=== PATIENT | female | born 1955 | race Caucasian/White ===

== ENCOUNTER 2024-02-25 09:02 | Outpatient (CLI) | payer MEDICARE, SELFPAY ==
--- NOTE | ~2024-02-25 | US_ITS ---
EXAMINATION: US pelvic complete w TV DATE: 02/25/2024 09:49 INDICATION: Pelvic and perineal pain and cramping TECHNIQUE: Multiple transabdominal and endovaginal sonographic images of the pelvis were obtained. COMPARISON: None. FINDINGS: The uterus measures 4.9 x 3.2 x 4.0 cm. 4 mm anechoic nabothian cyst at the cervix. The endometrial c omplex measures 8 mm in thickness. This appears nonuniform with the thickening isolated to the left s iam of the uterine fundus. There is an endometrial thickening has heterogeneous appearance predominan tly hyperechoic with suggestion of central small cystic spaces but is without hyperemia on color Dopp ler. The right ovary measures 1.4 x 0.7 x 1.3 cm. The left ovary measures 1.8 x 1.2 x 1.4 cm. Vascula r flow with arterial and venous waveforms identified in both ovaries on color Doppler. There is no fr ee fluid in the pelvis. IMPRESSION: 1. Nonuniform thickening of the endometrial complex at the left side of the fundus where it measures up to 8 mm in thickness. Differential would include endometrial polyp, endometrial hyperplasia or end ometrial carcinoma and would recommend hysteroscopy for further evaluation. Reviewed, dictated and finalized at location B. IMPRESSION: 1. Nonuniform thickening of the endometrial complex at the left side of the fun dus where it measures up to 8 mm in thickness. Differential would include endom etrial polyp, endometrial hyperplasia or endometrial carcinoma and would recomm end hysteroscopy for further evaluation.
== END 2024-02-25 09:03 | disposition home or self-care (01) ==
LOC: ANHIMG 09:05
PROVIDERS: Visit Provider Obstetrics & Gynecology
DX: N85.00 Endometrial hyperplasia, unspecified (principal)
CPT/HCPCS: 76830; 76856

== ENCOUNTER 2024-06-11 11:27 | Outpatient (CLI) | payer MEDICARE, SELFPAY ==
[2024-06-11 12:14] LABS: Anion Gap 5 mmol/L (4-12); Blood Urea Nitrogen 17 mg/dL (7-17); Calcium 9.5 mg/dL (8.4-10.2); Carbon Dioxide 34 mmol/L (22-30); Chloride 100 mmol/L (98-107); Estimated Glomerular Filt Rate 49; Glucose 136 mg/dL (65-110); Potassium 3.4 mmol/L (3.4-5.0); Sodium 139 mmol/L (137-145)
== END 2024-06-11 11:28 | disposition home or self-care (01) ==
LOC: ANHSURGERY 11:35
PROVIDERS: Anesthesiology; Visit Provider Obstetrics & Gynecology
DX: Z51.81 Encounter for therapeutic drug level monitoring (principal)
CPT/HCPCS: 36415; 80048

== ENCOUNTER 2024-06-17 02:41 | Day surgery (SDC) | payer MEDICARE, SELFPAY ==
[2024-06-09 11:30] VITALS: BMI 28.4
--- NOTE | 2024-06-09 12:01 | PC.NURSE ---
Report to the Outpatient Waiting Room, entrance under the green pavilion located off [facility], at time __9:00AM on date ___06/17/24____. Planned Procedure Time: ___11:00AM .? Time changes happen often and if your time is changed the preop area will call you the afternoon before. - You and your visitor will be asked to self-screen and do not enter if you have any COVID symptoms. Please call surgeon if you need to reschedule. - A mask is optional within the hospital at this time. Patients may have clear liquids (water, carbonated beverages, clear teas, apple juice) until 3 hours prior to surgery with a maximum of 20 ounces. - No food from midnight until time of surgery and no smoking. Take only the following medications with a SIP of water on the morning of surgery: ___DULOXETINE, METOPROLOL, MORPHINE DO NOT STOP ANY OF YOUR OTHER PRESCRIPTION MEDICATIONS PRIOR TO SURGERY EXCEPT THE FOLLOWING Medications to discontinue per physician NONE Date to take last dose Please no make-up, nail slovak, hairspray, perfume, deodorant, or body powder the day of surgery.? No jewelry (including any body piercings) or valuables the day of surgery, leave them at home.? Please take a shower or bath the night before, or the morning of, surgery with an antibacterial soap.? Wear comfortable, loose fitting clothing.? - Jewelry must be removed prior to entering the operating room.? Rings and piercings that are not removed may be cut off. - The hospital will not accept responsibility for valuables.? - Please leave all valuables, including medications, at home the day of surgery. If you are going home after surgery, a licensed delivery truck driver must drive you home.? - NO public transportation without another adult if you receive anesthesia. - We recommend that an adult stay with you for 24 hours following discharge. - We also recommend that you do not drive, make important decision, drink alcoholic beverages, or take any drugs that were not prescribed by your health care provider for at least 24 hours after your discharge time. Follow any additional instructions given to you from your surgeon. Telephone instructions given to ____PATIENT and asked if any additional questions and then verbalized understanding. Patient advised to call surgeon office or pre surgery nurse liaison [phone] if any additional questions.
[2024-06-17 09:25] VITALS: BP 121/66; PULSE 66; RESP 18; TEMP 36.2; O2SAT 96
[2024-06-17] MEDS: ACETAMINOPHEN 500 MG TABLET 1000 MG PO (09:41)
--- NOTE | 2024-06-17 09:44 | WPDANESEPPF ---
Anes - Initial Pre Proc Eval Procedure: Operation Date: 06/17/24 11:00 Proposed Procedures p Hysteroscopy Dilation and Curettage - Pascual Ulloa MD Date/Time: 06/17/24 09:44 Surgeon: Pascual Ulloa MD Pre Op Diagnosis: Endometrium Thickened Patient Data Age: 69 Gender: F Height: 1.68 m Weight: 80.2 kg Last Vital Signs Temp 36.2 C L 06/17/24 09:25 Pulse 66 06/17/24 09:25 Resp 18 06/17/24 09:25 BP 121/66 06/17/24 09:25 Pulse Ox 96 06/17/24 09:25 O2 Del Method Room Air 06/17/24 09:25 Allergies Allergy/AdvReac Type Severity Reaction Status Date / Time citalopram AdvReac Itching Verified 06/17/24 09:21 Home Medications Medication Instructions Recorded Confirmed Type aspirin 81 mg tablet,delayed 81 mg PO HS 06/09/24 06/17/24 History release clonazepam 1 mg tablet 1 mg PO HS 06/09/24 06/17/24 History duloxetine 30 mg capsule,delayed 30 mg PO QAM 06/09/24 06/17/24 History release ezetimibe 10 mg tablet 10 mg PO DAILY 06/09/24 06/17/24 History losartan 100 1 tablet PO QAM 06/09/24 06/17/24 History mg-hydrochlorothiazide 25 mg tablet metoprolol succinate 50 mg 50 mg PO QAM 06/09/24 06/17/24 History tablet,extended release 24 hr morphine 15 mg tablet,extended 15 mg PO BID 06/09/24 06/17/24 History release omeprazole 20 mg tablet,delayed 20 mg PO DAILY 06/09/24 06/17/24 History release rosuvastatin 20 mg tablet 20 mg PO HS 06/09/24 06/17/24 History Results Review: All pre-operative results and documents have been reviewed as part of the pre-operative evaluation. [facility]LY [facility] Social History Social History Smoking packs per day: 1 Smoking cigarettes per day: 20.0 Years smoked: 50 Smoking pack-years: 50.00 Smoking status: Former smoker Tobacco type: cigarettes Smoking end date: 06/12/23 Living arrangements: other Additional living arrangements comments: S.O. Spiritual care concerns: No Anes - Eval Final PreProcedure Day of Procedure 06/17/24 09:44 Patient weight: overweight ASA classification: III Emergent: no Anesthetic plan: proceed Anesthesia type and monitoring: general GIVS and standard monitoring Results Review: All pre-operative results and documents have been reviewed as part of the pre-operative evaluation. Informed Consent: The patient's anesthetic plan and its attendant risks and benefits were discussed with the patient/family/POA. Questions were solicited and answers provided to the satisfaction of the patient/family/POA.
--- NOTE | 2024-06-17 10:03 | P.PNAN_ITS ---
Anes - Initial Pre Proc Eval Procedure: Operation Date: 06/17/24 11:00 Proposed Procedures p Hysteroscopy Dilation and Curettage - Pascual Ulloa MD Date/Time: 06/17/24 10:03 Surgeon: Pascual Ulloa MD Pre Op Diagnosis: Endometrium Thickened Patient Data Age: 69 Gender: F Height: 1.68 m Weight: 80.2 kg Last Vital Signs Temp 97.2 F L 06/17/24 09:25 Pulse 66 06/17/24 09:25 Resp 18 06/17/24 09:25 BP 121/66 06/17/24 09:25 Pulse Ox 96 06/17/24 09:25 O2 Del Method Room Air 06/17/24 09:25 Allergies Allergy/AdvReac Type Severity Reaction Status Date / Time citalopram AdvReac Itching Verified 06/17/24 09:21 Home Medications Medication Instructions Recorded Confirmed Type aspirin 81 mg tablet,delayed 81 mg PO HS 06/09/24 06/17/24 History release clonazepam 1 mg tablet 1 mg PO HS 06/09/24 06/17/24 History duloxetine 30 mg capsule,delayed 30 mg PO QAM 06/09/24 06/17/24 History release ezetimibe 10 mg tablet 10 mg PO DAILY 06/09/24 06/17/24 History losartan 100 1 tablet PO QAM 06/09/24 06/17/24 History mg-hydrochlorothiazide 25 mg tablet metoprolol succinate 50 mg 50 mg PO QAM 06/09/24 06/17/24 History tablet,extended release 24 hr morphine 15 mg tablet,extended 15 mg PO BID 06/09/24 06/17/24 History release omeprazole 20 mg tablet,delayed 20 mg PO DAILY 06/09/24 06/17/24 History release rosuvastatin 20 mg tablet 20 mg PO HS 06/09/24 06/17/24 History Patient hx anesthesia problems: none Family hx anesthesia problems: none Results Review: All pre-operative results and documents have been reviewed as part of the pre- operative evaluation. COUNTS INCLUDE 234 BEDS AT THE [facility] Social History Social History Smoking packs per day: 1 Smoking cigarettes per day: 20.0 Years smoked: 50 Smoking pack-years: 50.00 Smoking status: Former smoker Tobacco type: cigarettes Smoking end date: 06/12/23 Living arrangements: other Additional living arrangements comments: S.O. Spiritual care concerns: No Anes - Eval Final PreProcedure Day of Procedure 06/17/24 10:03 Patient weight: normal Heart: regular rate and rhythm Lungs: clear to auscultation Airway: Mallampati scale class II Neurological: alert and oriented Last oral intake: >/= 8 hours ASA classification: III Emergent: no Anesthetic plan: proceed Anesthesia type and monitoring: general GIVS and standard monitoring Results Review: All pre-operative results and documents have been reviewed as part of the pre- operative evaluation. Informed Consent: The patient's anesthetic plan and its attendant risks and benefits were discussed with the patient/family/POA. Questions were solicited and answers provided to the satisfaction of the patient/family/POA.
--- NOTE | 2024-06-17 10:45 | PM.IMHP ---
H&P: HPI History of Present Illness Date/Time: 06/17/24 10:45 Chief Complaint: thickened endometrium, abdominal cramping Narrative: Patient is a 69 year old female who presents for hysteroscopy and D&C. She has a history of worsening pelvic cramping over the past 2 years. She denies postmenopausal bleeding. Menopause about 15 years ago. She had an ultrasound done which showed a thickened endometrial lining of 8mm that is heterogenous; also noted that thickening was isolated to left side of uterus. We discussed office EMB vs hysteroscopy D&C and patient elects for hysteroscopy D&C. She denies abdominal pain, fevers, chills, or dysuria today. Review of Systems Review of Systems: All systems reviewed & are unremarkable except as noted in HPI and below PMFSH Social History Social History Smoking packs per day: 1 Smoking cigarettes per day: 20.0 Years smoked: 50 Smoking pack-years: 50.00 Smoking status: Former smoker Tobacco type: cigarettes Smoking end date: 06/12/23 Living arrangements: other Additional living arrangements comments: S.O. Spiritual care concerns: No Meds Home Medications and Allergies Home Medications Medication Instructions Recorded Confirmed Type aspirin 81 mg tablet,delayed 81 mg PO HS 06/09/24 06/17/24 History release clonazepam 1 mg tablet 1 mg PO HS 06/09/24 06/17/24 History duloxetine 30 mg capsule,delayed 30 mg PO QAM 06/09/24 06/17/24 History release ezetimibe 10 mg tablet 10 mg PO DAILY 06/09/24 06/17/24 History losartan 100 1 tablet PO QAM 06/09/24 06/17/24 History mg-hydrochlorothiazide 25 mg tablet metoprolol succinate 50 mg 50 mg PO QAM 06/09/24 06/17/24 History tablet,extended release 24 hr morphine 15 mg tablet,extended 15 mg PO BID 06/09/24 06/17/24 History release omeprazole 20 mg tablet,delayed 20 mg PO DAILY 06/09/24 06/17/24 History release rosuvastatin 20 mg tablet 20 mg PO HS 06/09/24 06/17/24 History Allergies Allergy/AdvReac Type Severity Reaction Status Date / Time citalopram AdvReac Itching Verified 06/17/24 09:21 Vital Signs Vital Signs - 24 hr 06/17/24 09:25 Temperature 97.2 F L Pulse Rate 66 Respiratory Rate 18 Blood Pressure 121/66 Pulse Oximetry 96 Oxygen Delivery Room Air Exam Const: General: comfortable and no acute distress HENMT: Mouth: Yes moist mucous membranes Eyes: General: appearance normal, both eyes and all related structures Resp: Effort & Inspection: normal respiratory effort Cardio: Rate: regular rate Skin: General skin exam: normal color Extrem: General: normal to inspection Psych: Mental Status: mental status grossly normal Assessment and Plan Assessment and plan (1) Thickened endometrium: Code(s): R93.89 - Abnormal findings on diagnostic imaging of other specified body structures Status: Acute Assessment and Plan: - worsening pelvic cramping x 2 years, not associated with postmenopausal bleeding - pelvic US: 8mm thickened and heterogenous endometrium, isolated to left side of cavity - office EMB vs hysteroscopy D&C discussed with patient, including risks and benefits of each; patient would like to proceed with hysteroscopy D&C
--- NOTE | 2024-06-17 11:04 | WPDHPUPDATE1 ---
History and Physical Update Update Date/Time: 06/17/24 11:04 History and Physical has been reviewed, including an updated exam of the patient. There are NO changes in the patient's condition. Risks, benefits, and alternatives have been discussed and questions answered. Patient agrees to proceed with procedure.
--- NOTE | 2024-06-17 11:44 | SUR.PREOP ---
1050 PT INFORMED OF SURGERY TIME DELAY. DENIES NEEDS.
[2024-06-17] MEDS: LIDO 1%/EPINEPHRINE 1:100,000 20 ML VIAL 10 ML INFILTRATE (12:26)
[2024-06-17 12:38] VITALS: BP 122/63; PULSE 63; RESP 12; O2SAT 100
[2024-06-17] MEDS: LACTATED RINGERS 1,000 ML 30 ML IV CONT (12:38)
--- NOTE | 2024-06-17 12:59 | W.PM.PROC2 ---
Procedure Note - Detailed Date of Procedure 06/17/24 Pre-op Diagnosis Endometrium Thickened Post-op Diagnosis Same Procedure Performed hysteroscopy, D&C Surgeon Pascual Ulloa MD Anesthesia MAC Findings cervical polyp and left sided endometrial polyp noted; uterine cavity otherwise normal; both tubal ostia visualized Description of Procedure The patient was taken to the operating room with IVFs running. She was placed into the dorsal supine position where she received MAC without any difficulty. The patient was placed in the dorsal lithotomy position using Crispin stirrups. EUA revealed findings as above. She was then prepped and draped in a normal sterile fashion. A time-out procedure was performed and all members of the OR team agreed on the patient and plan. A bivalve speculum was then inserted into the patient's vagina. The anterior lip of the cervix was grasped with a single tooth tenaculum. The uterus was gently sounded to 8 cm. The hysteroscope was then inserted into the uterine cavity using saline as the distension media and revealed the above findings. Both ostia were identified and pictures were taken. At this point, the morcellator was then introduced into the hysteroscope and calibrated. The tip of the morcellator was then applied to the endometrial polyp and activated. The polyp was removed to its base. The same procedure was performed on the cervical polyp. A sharp curettage was then performed. At the end of the procedure, the uterine cavity was clear of all pathology. The fluid deficit was 240 cc. The specimen was sent for pathology. The hysteroscope and tenaculum were removed. The speculum was then reintroduced into the vagina and the anterior lip of the cervix was hemostatic. The speculum was then removed. The patient tolerated the procedure well. Sponge, lap, and instrument counts were correct X2. The patient was taken out of the dorsal lithotomy position and was awakened from anesthesia. She was taken to the recovery room in stable condition. Estimated Blood Loss 5 Urine Output 20 Pathology Yes Complications No immediate complications Condition Stable Disposition Same day
[2024-06-17 13:00] VITALS: BP 116/57; PULSE 65; RESP 14; O2SAT 95
[2024-06-17 13:30] VITALS: BP 126/59; PULSE 59; RESP 14
== END 2024-06-17 13:41 | disposition home or self-care (01) ==
PROVIDERS: Visit Provider Obstetrics & Gynecology
PROC: 0U5B8ZZ Destruction of Endometrium, Via Natural or Artificial Opening Endoscopic (ICD-10-PCS; CPT 58563; principal; 2024-06-17 11:00)
DX: R93.89 Abnormal findings on diagnostic imaging of other specified body structures (principal); N84.0 Polyp of corpus uteri; Z79.82 Long term (current) use of aspirin; Z79.891 Long term (current) use of opiate analgesic; Z87.891 Personal history of nicotine dependence
CPT/HCPCS: 58558; 88305; A9270; J1100; J2003; J2004; J2250; J2405; J2704; J3010; J7120